=== PATIENT | female | born 1985 | race Hispanic/Latino ===

== ENCOUNTER 2017-03-27 12:19 | Emergency (ER) | payer MEDICAID ==
[2017-03-27 13:04] LABS: BASOPHILS % (AUTO) 1.1 % (0.0-5.0); EOSINOPHILS % (AUTO) 0.6 % (0.0-8.0); LYMPHOCYTES % (AUTO) 37.8 % (21.0-51.0); MEAN CORPUSCULAR HEMOGLOBIN 33.7 pg (27.0-33.0); MEAN CORPUSCULAR HGB CONC 34.6 g/dL (32.0-36.0); MEAN CORPUSCULAR VOLUME 97.6 fL (79-99); MONOCYTES % (AUTO) 10.5 % (3.0-13.0); PLATELET COUNT (AUTO) 216 K/uL (130-400); WHITE BLOOD COUNT (AUTO) 4.3 K/uL (4.8-10.8)
[2017-03-27 13:20] LABS: APPEARANCE,URINE Turbid (CLEAR); BILIRUBIN,URINE Moderate (NEGATIVE); COLOR,URINE Dark Yellow (YELLOW); GLUCOSE, URINE (UA) Negative (NEGATIVE); KETONES,URINE 15 mg/dL (NEGATIVE); LEUKOCYTE ESTERASE ,URINE Moderate (NEGATIVE); NITRATE,URINE Negative (NEGATIVE); OCCULT BLOOD,URINE Moderate (NEGATIVE); PH,URINE 5.5 (5.0-8.0); PROTEIN,URINE Trace (NEGATIVE)
[2017-03-27 13:22] LABS: HCG,QUAL RESULT NEGATIVE (NEGATIVE)
[2017-03-27 13:25] LABS: CREATININE 1.1 mg/dL (0.5-1.5); POTASSIUM 3.6 mmol/L (3.5-5.1)
[2017-03-27 13:29] LABS: AMPHET/METH SCREEN,URINE NEGATIVE (NEGATIVE); BARBITURATE SCREEN, URINE NEGATIVE (NEGATIVE); BENZODIAZEPINES SCREEN,URINE NEGATIVE (NEGATIVE); CANNABINOID SCREEN,URINE NEGATIVE (NEGATIVE); COCAINE SCREEN,URINE NEGATIVE (NEGATIVE); OPIATE SCREEN,URINE NEGATIVE (NEGATIVE); PHENCYCLIDINE SCREEN,URINE NEGATIVE (NEGATIVE)
[2017-03-27 13:37] LABS: ALBUMIN 3.2 g/dL (3.5-5.0); BILIRUBIN,TOTAL 0.9 mg/dL (0.2-1.0); THYROID STIMULATING HORMONE 0.05 uIU/mL (0.36-3.74); TOTAL PROTEIN, SERUM 7.2 g/dL (6.0-8.3)
[2017-03-27 13:49] LABS: BACTERIA,URINE Moderate /HPF (None Seen); MUCUS,URINE Many LPF (None Seen)
[2017-03-27] MEDS ORDERED: SODIUM CHLORIDE 0.9% 1000ML 1,000 ML IV ONE (13:57)
[2017-03-27] MEDS ORDERED: CEFTRIAXONE SODIUM 1 GM ONE (14:03)
== END 2017-03-27 14:58 | disposition home or self-care (01) ==
LOC: EDH 12:19
DX: N39.0 Urinary tract infection, site not specified (principal); E86.0 Dehydration; E07.9 Disorder of thyroid, unspecified; Z88.2 Allergy status to sulfonamides
CPT/HCPCS: 36415; 80053; 80305; 81001; 81025; 84443; 85025; 87088; 87186; 93005; 96361; 96374; 99285; J0696; J7030

== ENCOUNTER 2017-04-19 09:07 | Inpatient (IN) | payer MEDICAID ==
[~2017-04-19] VITALS: Ht 139.7 cm; Wt 57.6 kg
[2017-04-19 09:45] LABS: APPEARANCE,URINE Cloudy (CLEAR); BILIRUBIN,URINE Small (NEGATIVE); COLOR,URINE Dark Yellow (YELLOW); GLUCOSE, URINE (UA) Negative (NEGATIVE); KETONES,URINE >=160 mg/dL (NEGATIVE); LEUKOCYTE ESTERASE ,URINE Negative (NEGATIVE); NITRATE,URINE Negative (NEGATIVE); OCCULT BLOOD,URINE Moderate (NEGATIVE); PH,URINE 5.5 (5.0-8.0); PROTEIN,URINE POS 1+ (NEGATIVE)
[2017-04-19 09:59] LABS: BACTERIA,URINE Rare /HPF (None Seen); HYALINE CASTS, URINE 0-1 /LPF (0-1 /LPF); SQUAMOUS EPITHELIAL CELL,UR Few /LPF (0-2); WBC,URINE 0-1 /HPF (0-1)
[2017-04-19] MEDS ORDERED: SODIUM CHLORIDE 0.9% 1000ML 1,000 ML IV ONE ×3 (10:02→14:42)
[2017-04-19 10:23] LABS: BASOPHILS % (AUTO) 3.2 % (0.0-5.0); EOSINOPHILS % (AUTO) 0.6 % (0.0-8.0); HEMATOCRIT 43.5 % (36-48); LYMPHOCYTES % (AUTO) 36.5 % (21.0-51.0); MEAN CORPUSCULAR HEMOGLOBIN 34.3 pg (27.0-33.0); MEAN CORPUSCULAR HGB CONC 33.8 g/dL (32.0-36.0); MEAN CORPUSCULAR VOLUME 101.4 fL (79-99); MONOCYTES % (AUTO) 10.7 % (3.0-13.0); NUCLEATED RED BLOOD CELLS 0.1 % (0.0-0.19); PLATELET COUNT (AUTO) 181 K/uL (130-400); RED BLOOD CELL COUNT(AUTO) 4.29 MIL/uL (4.00-5.50); RED CELL DISTRIBUTION WIDTH 16.1 % (11.0-15.5); WHITE BLOOD COUNT (AUTO) 3.1 K/uL (4.8-10.8)
[2017-04-19 10:30] LABS: CREATININE 1.1 mg/dL (0.5-1.5); POTASSIUM 3.4 mmol/L (3.5-5.1)
[2017-04-19 10:54] LABS: ALBUMIN 3.2 g/dL (3.5-5.0); BILIRUBIN,DIRECT 0.6 mg/dL (0.0-0.3); BILIRUBIN,TOTAL 1.3 mg/dL (0.2-1.0); THYROID STIMULATING HORMONE 0.02 uIU/mL (0.36-3.74); TOTAL PROTEIN, SERUM 7.2 g/dL (6.0-8.3)
[2017-04-19] MEDS ORDERED: LEVO88TA4 PO (15:42)
[2017-04-19] MEDS ORDERED: ACETAMINOPHEN 325 MG TAB PO PRN (15:45)
[2017-04-19] MEDS ORDERED: ONDANSETRON HCL 4 MG/2 ML VIAL IVP PRN (15:45)
[2017-04-19 16:00] VITALS: BP 90/58
[2017-04-19] MEDS: SODIUM CHLORIDE 0.9% 1000ML 1,000 ML IV SCH ×2 (16:11→20:46)
[2017-04-19] MEDS ORDERED: POTASSIUM CHLORIDE 20 MEQ ERTAB PO PRN (16:30)
[2017-04-19] MEDS ORDERED: LIDOCAINE HCL-MPF 1% 2ML VIAL IVP PRN (16:30)
[2017-04-19] MEDS ORDERED: POTASSIUM CHLORIDE 10% ELIXIR 20 MEQ/15 ML UDCUP PO PRN (16:30)
[2017-04-19] MEDS ORDERED: POTASSIUM CHLORIDE 20MEQ/100ML 100 ML IV PRN (16:30)
[2017-04-19 19:59] VITALS: BP 91/57
[2017-04-20] VITALS (7 sets, daily range): BP systolic 86–100; BP diastolic 40–60
[2017-04-20] MEDS ORDERED: HYDRALAZINE HCL 20 MG/ML VIAL IV PRN (02:30)
[2017-04-20 05:54] LABS: BASOPHILS % (AUTO) 0.2 % (0.0-5.0); EOSINOPHILS % (AUTO) 0.7 % (0.0-8.0); HEMATOCRIT 34.2 % (36-48); LYMPHOCYTES % (AUTO) 52.2 % (21.0-51.0); MEAN CORPUSCULAR HEMOGLOBIN 35.6 pg (27.0-33.0); MEAN CORPUSCULAR HGB CONC 35.3 g/dL (32.0-36.0); MEAN CORPUSCULAR VOLUME 100.7 fL (79-99); NEUTROPHILS % (AUTO) 37.9 % (40.0-77.0); NUCLEATED RED BLOOD CELLS 0.1 % (0.0-0.19); PLATELET COUNT (AUTO) 155 K/uL (130-400); RED CELL DISTRIBUTION WIDTH 15.9 % (11.0-15.5); WHITE BLOOD COUNT (AUTO) 4.2 K/uL (4.8-10.8)
[2017-04-20 06:17] LABS: POTASSIUM 3.4 mmol/L (3.5-5.1); THYROID STIMULATING HORMONE 0.02 uIU/mL (0.36-3.74)
[2017-04-20] MEDS: FAMOTIDINE 20MG TAB 20 MG TAB PO SCH ×2 (09:15→21:00)
[2017-04-20] MEDS: SODIUM CHLORIDE 0.9% 1000ML 1,000 ML IV SCH ×2 (12:10→18:06)
[2017-04-21] MEDS: SODIUM CHLORIDE 0.9% 1000ML 1,000 ML IV SCH ×3 (00:56→22:35)
[2017-04-21 03:55] VITALS: BP 82/43
[2017-04-21] MEDS: LEVOTHYROXINE 50 MCG TABLET PO SCH (06:21)
[2017-04-21 07:00] VITALS: BP 91/57
[2017-04-21] MEDS: FAMOTIDINE 20MG TAB 20 MG TAB PO SCH ×2 (10:28→21:00)
[2017-04-21 11:00] VITALS: BP 124/58
[2017-04-21] MEDS ORDERED: POTASSIUM CHLORIDE 10% ELIXIR 20 MEQ/15 ML UDCUP PO PRN (11:45)
[2017-04-21] MEDS ORDERED: LIDOCAINE HCL-MPF 1% 2ML VIAL IVP PRN (11:45)
[2017-04-21] MEDS ORDERED: POTASSIUM CHLORIDE 20MEQ/100ML 100 ML IV PRN (11:45)
[2017-04-21] MEDS ORDERED: POTASSIUM CHLORIDE 20 MEQ ERTAB PO PRN (11:45)
[2017-04-21 16:00] VITALS: BP 87/51
[2017-04-21 20:36] VITALS: BP 90/66
[2017-04-22 00:26] VITALS: BP 87/55
[2017-04-22 04:09] VITALS: BP 100/51
[2017-04-22] MEDS: LEVOTHYROXINE 50 MCG TABLET PO SCH ×2 (06:27→06:43)
[2017-04-22] MEDS ORDERED: LEVO50TA4 PO (07:41)
[2017-04-22] MEDS ORDERED: POLY17PO4 PO (07:41)
[2017-04-22 08:00] VITALS: BP 91/59
[2017-04-22] MEDS: FAMOTIDINE 20MG TAB 20 MG TAB PO SCH (09:00)
== END 2017-04-22 10:40 | disposition home or self-care (01) | DRG 422 ==
LOC: EDH 09:07 → EDHIP 09:08 → OBSVTOIN 09:08 → EDHIP 12:27 → UNDOADMOB 12:27 → 4CH 14:04 → EDHIP 14:04 → 4BH 04-21 16:06
PROVIDERS: ADMIT Family Medicine; ATTEND Family Medicine
DX: E86.0 Dehydration (principal); E87.8 Other disorders of electrolyte and fluid balance, not elsewhere classified; R53.1 Weakness; E06.3 Autoimmune thyroiditis; E87.6 Hypokalemia; K59.00 Constipation, unspecified; Q90.9 Down syndrome, unspecified; Z88.2 Allergy status to sulfonamides
CPT/HCPCS: 36415; 71045; 74018; 76536; 80048; 80076; 81001; 81025; 82550; 82607; 82746; 83690; 84439; 84443; 84481; 85025; J3480; J3490; J7030

== ENCOUNTER 2017-06-09 12:45 | Inpatient (IN) | payer MEDICAID ==
[~2017-06-09] VITALS: Ht 139.7 cm; Wt 46.3 kg
[~2017-06-09 12:45] MED LIST: LEVO50TA4 PO; POLY17PO4 PO
[2017-06-09] MEDS ORDERED: SODIUM CHLORIDE 0.9% 1000ML 1,000 ML IV ONE ×2 (13:43→18:44)
[2017-06-09 13:54] LABS: CREATININE 1.3 mg/dL (0.5-1.5); POTASSIUM 3.3 mmol/L (3.5-5.1)
[2017-06-09 13:57] LABS: NUCLEATED RED BLOOD CELLS 0.2 % (0.0-0.19); RED BLOOD CELL COUNT(AUTO) 3.73 MIL/uL (4.00-5.50); WHITE BLOOD COUNT (AUTO) 3.4 K/uL (4.8-10.8)
[2017-06-09 14:00] LABS: BILIRUBIN,TOTAL 1.1 mg/dL (0.2-1.0)
[2017-06-09 14:07] LABS: BASOPHILS % (AUTO) 3.1 % (0.0-5.0); EOSINOPHILS % (AUTO) 0.5 % (0.0-8.0); HEMATOCRIT 38.6 % (36-48); LYMPHOCYTES % (AUTO) 41.7 % (21.0-51.0); MEAN CORPUSCULAR HGB CONC 34.8 g/dL (32.0-36.0); MEAN CORPUSCULAR VOLUME 103.4 fL (79-99); MONOCYTES % (AUTO) 9.4 % (3.0-13.0); NEUTROPHILS % (AUTO) 45.3 % (40.0-77.0); PLATELET COUNT (AUTO) 231 K/uL (130-400); RED CELL DISTRIBUTION WIDTH 14.6 % (11.0-15.5)
[2017-06-09] MEDS ORDERED: DEXTROSE 50%-WATER 50 ML DISP.SYRIN IV ONE (14:35)
[2017-06-09 14:39] LABS: APPEARANCE,URINE Cloudy (CLEAR); BILIRUBIN,URINE Moderate (NEGATIVE); COLOR,URINE Dark Yellow (YELLOW); GLUCOSE, URINE (UA) Negative (NEGATIVE); KETONES,URINE >=160 mg/dL (NEGATIVE); LEUKOCYTE ESTERASE ,URINE Small (NEGATIVE); NITRATE,URINE Negative (NEGATIVE); OCCULT BLOOD,URINE Negative (NEGATIVE); PH,URINE 5.5 (5.0-8.0); PROTEIN,URINE POS 1+ (NEGATIVE)
[2017-06-09 14:48] LABS: BACTERIA,URINE Rare /HPF (None Seen); MUCUS,URINE Many LPF (None Seen); RBC,URINE None Seen /HPF (0-1); WBC,URINE 0-1 /HPF (0-1)
[2017-06-09] MEDS ORDERED: LEVOFLOXACIN 500 MG/D5W 100 ML 100 ML ONE (18:44)
[2017-06-09] MEDS ORDERED: POTASSIUM CHLORIDE 20 MEQ ERTAB PO PRN (19:15)
[2017-06-09] MEDS ORDERED: ACETAMINOPHEN 325 MG TAB PO PRN (19:15)
[2017-06-09] MEDS ORDERED: ONDANSETRON HCL MDV 20ML 2 MG/ML VIAL IVP PRN (19:15)
[2017-06-09] MEDS ORDERED: LEVOFLOXACIN 500 MG/D5W 100 ML 100 ML IV SCH (19:15)
[2017-06-09] MEDS ORDERED: POTASSIUM CHLORIDE 10% ELIXIR 20 MEQ/15 ML UDCUP PO PRN (19:15)
[2017-06-09] MEDS: POLYETHYLENE GLYCOL 3350 17 GM POWD.PACK PO SCH (19:15)
[2017-06-09] MEDS ORDERED: LACTULOSE 20 GM/30 ML UDCUP ONE (19:37)
[2017-06-09 23:10] VITALS: BP 96/54
[2017-06-10] VITALS: BP 87/60
[2017-06-10] MEDS ORDERED: LACTULOSE 20 GM/30 ML UDCUP ONE (00:10)
[2017-06-10 04:00] VITALS: BP 86/54
[2017-06-10] MEDS ORDERED: CEFTRIAXONE 1GM/D5W 50ML 50 ML IV SCH (05:45)
[2017-06-10 07:30] VITALS: BP 81/58
[2017-06-10 07:48] LABS: BASOPHILS % (AUTO) 2.1 % (0.0-5.0); EOSINOPHILS % (AUTO) 0.9 % (0.0-8.0); HEMATOCRIT 34.6 % (36-48); LYMPHOCYTES % (AUTO) 51.2 % (21.0-51.0); MEAN CORPUSCULAR HEMOGLOBIN 35.9 pg (27.0-33.0); MEAN CORPUSCULAR HGB CONC 34.6 g/dL (32.0-36.0); MEAN CORPUSCULAR VOLUME 103.8 fL (79-99); MONOCYTES % (AUTO) 11.5 % (3.0-13.0); NEUTROPHILS % (AUTO) 34.3 % (40.0-77.0); NUCLEATED RED BLOOD CELLS 0.1 % (0.0-0.19); PLATELET COUNT (AUTO) 193 K/uL (130-400); RED BLOOD CELL COUNT(AUTO) 3.33 MIL/uL (4.00-5.50); RED CELL DISTRIBUTION WIDTH 14.3 % (11.0-15.5); WHITE BLOOD COUNT (AUTO) 3.7 K/uL (4.8-10.8)
[2017-06-10 07:55] LABS: CREATININE 1.2 mg/dL (0.5-1.5); POTASSIUM 3.2 mmol/L (3.5-5.1)
[2017-06-10] MEDS: POLYETHYLENE GLYCOL 3350 17 GM POWD.PACK PO SCH ×2 (10:13→19:15)
[2017-06-10] MEDS: CEFTRIAXONE SODIUM 1 GM IVP SCH (10:13)
[2017-06-10] MEDS: POTASSIUM CHLORIDE 20MEQ/100ML 100 ML IV PRN ×2 (10:21→14:27)
[2017-06-10] MEDS: LIDOCAINE HCL-MPF 1% 2ML VIAL IVP PRN ×2 (10:21→14:27)
[2017-06-10 11:00] VITALS: BP 89/55
[2017-06-10 11:08] LABS: MAGNESIUM 1.8 mg/dL (1.80-2.40); THYROID STIMULATING HORMONE 0.7 uIU/mL (0.36-3.74)
[2017-06-10] MEDS ORDERED: BENZOCAINE/MENTH/CETYLPYRD CL 1 EACH LOZENGE MM PRN (15:45)
[2017-06-10] MEDS: BISACODYL 10 MG SUPP.RECT RC ONE ×2 (15:45→17:33)
[2017-06-10 16:00] VITALS: BP 84/54
[2017-06-10] MEDS: MEGESTROL 400 MG/10 ML UDCUP PO SCH ×2 (17:33→20:39)
[2017-06-10 20:00] VITALS: BP 86/54
[2017-06-11] VITALS: BP 83/52
[2017-06-11 04:00] VITALS: BP 82/50
[2017-06-11] MEDS: LEVOTHYROXINE 50 MCG TABLET PO SCH (06:01)
[2017-06-11 06:05] LABS: HEMATOCRIT 29.4 % (36-48); MEAN CORPUSCULAR HGB CONC 36.7 g/dL (32.0-36.0); MEAN CORPUSCULAR VOLUME 103.6 fL (79-99); NUCLEATED RED BLOOD CELLS 0.1 % (0.0-0.19); PLATELET COUNT (AUTO) 165 K/uL (130-400); RED BLOOD CELL COUNT(AUTO) 2.84 MIL/uL (4.00-5.50); RED CELL DISTRIBUTION WIDTH 14.4 % (11.0-15.5); WHITE BLOOD COUNT (AUTO) 3.6 K/uL (4.8-10.8)
[2017-06-11 06:13] LABS: CREATININE 1.1 mg/dL (0.5-1.5); POTASSIUM 3.1 mmol/L (3.5-5.1)
[2017-06-11] MEDS: LIDOCAINE HCL-MPF 1% 2ML VIAL IVP PRN ×2 (06:32→11:05)
[2017-06-11] MEDS: POTASSIUM CHLORIDE 20MEQ/100ML 100 ML IV PRN ×2 (06:32→11:04)
[2017-06-11] MEDS: SODIUM CHLORIDE 0.9% 1000ML 1,000 ML IV SCH ×2 (06:49→17:19)
[2017-06-11 07:57] VITALS: BP 86/52
[2017-06-11] MEDS: CEFTRIAXONE SODIUM 1 GM IVP SCH (08:28)
[2017-06-11] MEDS: POLYETHYLENE GLYCOL 3350 17 GM POWD.PACK PO SCH ×2 (08:28→19:15)
[2017-06-11] MEDS: MEGESTROL 400 MG/10 ML UDCUP PO SCH ×4 (08:28→20:54)
[2017-06-11 11:30] VITALS: BP 85/52
[2017-06-11 19:05] VITALS: BP 98/60
[2017-06-12 00:15] VITALS: BP 108/68
[2017-06-12] MEDS: SODIUM CHLORIDE 0.9% 1000ML 1,000 ML IV SCH ×2 (03:02→11:50)
[2017-06-12] MEDS: BISACODYL 10 MG SUPP.RECT RC PRN ×2 (03:04→08:49)
[2017-06-12 04:05] VITALS: BP 95/60
[2017-06-12 05:09] LABS: HEMATOCRIT 33.4 % (36-48); MEAN CORPUSCULAR HGB CONC 34.7 g/dL (32.0-36.0); MEAN CORPUSCULAR VOLUME 103.9 fL (79-99); PLATELET COUNT (AUTO) 151 K/uL (130-400); RED BLOOD CELL COUNT(AUTO) 3.22 MIL/uL (4.00-5.50); RED CELL DISTRIBUTION WIDTH 14.2 % (11.0-15.5); WHITE BLOOD COUNT (AUTO) 5.2 K/uL (4.8-10.8)
[2017-06-12 05:20] LABS: MAGNESIUM 1.4 mg/dL (1.80-2.40); POTASSIUM 3.5 mmol/L (3.5-5.1)
[2017-06-12] MEDS: LEVOTHYROXINE 50 MCG TABLET PO SCH (06:26)
[2017-06-12] MEDS: LIDOCAINE HCL-MPF 1% 2ML VIAL IVP PRN (06:26)
[2017-06-12] MEDS: POTASSIUM CHLORIDE 20MEQ/100ML 100 ML IV PRN (06:26)
[2017-06-12 08:31] VITALS: BP 89/55
[2017-06-12] MEDS: MEGESTROL 400 MG/10 ML UDCUP PO SCH ×2 (08:35→12:33)
[2017-06-12] MEDS: CEFTRIAXONE SODIUM 1 GM IVP SCH (08:35)
[2017-06-12] MEDS: POLYETHYLENE GLYCOL 3350 17 GM POWD.PACK PO SCH (08:36)
[2017-06-12 11:59] VITALS: BP 86/57
[2017-06-12] MEDS ORDERED: DOCU-132 PO (12:25)
[2017-06-12] MEDS ORDERED: CEPH-578 PO (12:25)
[2017-06-12] MEDS ORDERED: MEGE400O4 PO (12:25)
[2017-06-12] MEDS ORDERED: MAGNESIUM 2GM PREMIX 50ML 50 ML IV SCH (12:30)
== END 2017-06-12 17:05 | disposition home or self-care (01) | DRG 115 ==
LOC: EDH 12:45 → EDHIP 12:46 → 4AH 22:45 → 3AH 06-11 15:50
PROVIDERS: ADMIT Family Medicine; ATTEND Family Medicine
DX: S09.90XA Unspecified injury of head, initial encounter (principal); E44.1 Mild protein-calorie malnutrition; K76.0 Fatty (change of) liver, not elsewhere classified; N39.0 Urinary tract infection, site not specified; E03.9 Hypothyroidism, unspecified; E05.90 Thyrotoxicosis, unspecified without thyrotoxic crisis or storm; E86.0 Dehydration; E87.6 Hypokalemia; N20.0 Calculus of kidney; K59.00 Constipation, unspecified; E83.42 Hypomagnesemia; X58.XXXA Exposure to other specified factors, initial encounter; Y93.89 Activity, other specified; Y92.89 Other specified places as the place of occurrence of the external cause; Y99.8 Other external cause status; Q90.9 Down syndrome, unspecified; Z68.23 Body mass index [BMI] 23.0-23.9, adult; Z88.2 Allergy status to sulfonamides; Z53.20 Procedure and treatment not carried out because of patient's decision for unspecified reasons
CPT/HCPCS: 36415; 70450; 74021; 74176; 80048; 80053; 81001; 83735; 84132; 84439; 84443; 84481; 84703; 85025; 85027; 87880; 93005; 93306; A4218; J0696; J1956; J3475; J3480; J3490; J7030; J7070

== ENCOUNTER 2018-08-17 07:28 | Inpatient (IN) | payer MEDICAID | END 2018-08-23 18:57 | disposition home or self-care (01) | LOC: EDH 07:28 → EDHIP 07:29 → 3BH 11:51 | DX: A41.9 Sepsis, unspecified organism (principal); D53.1 Other megaloblastic anemias, not elsewhere classified; I10 Essential (primary) hypertension; Q90.9 Down syndrome, unspecified; R00.0 Tachycardia, unspecified; K29.70 Gastritis, unspecified, without bleeding; R62.7 Adult failure to thrive; H70.91 Unspecified mastoiditis, right ear; R13.10 Dysphagia, unspecified ==

== ENCOUNTER 2020-05-30 20:35 | Emergency (ER) | payer MEDICAID ==
[~2020-05-30 20:35] MED LIST changes: +CITA20SO2 PO; +MEGE625O5 PO; -POLY17PO4 PO
[2020-05-30 20:56] LABS: BASOPHILS % (AUTO) 1.2 % (0.0-5.0); EOSINOPHILS % (AUTO) 1.2 % (0.0-8.0); HEMATOCRIT 41.1 % (36-48); MEAN CORPUSCULAR HEMOGLOBIN 34.8 pg (27.0-33.0); MEAN CORPUSCULAR HGB CONC 33.6 g/dL (32.0-36.0); MEAN CORPUSCULAR VOLUME 103.8 fL (79-99); MONOCYTES % (AUTO) 8.2 % (3.0-13.0); NEUTROPHILS % (AUTO) 44.2 % (40.0-77.0); PLATELET COUNT (AUTO) 210 K/uL (130-400); RED BLOOD CELL COUNT(AUTO) 3.96 MIL/uL (4.00-5.50); RED CELL DISTRIBUTION WIDTH 12.9 % (11.0-15.5)
[2020-05-30 21:09] LABS: CREATININE 0.9 mg/dL (0.5-1.5)
[2020-05-30 21:24] LABS: ALBUMIN 2.9 g/dL (3.5-5.0); BILIRUBIN,TOTAL 0.7 mg/dL (0.2-1.0); TOTAL PROTEIN, SERUM 6.6 g/dL (6.0-8.3)
[2020-05-30 21:39] LABS: APPEARANCE,URINE Clear (CLEAR); BILIRUBIN,URINE Negative (NEGATIVE); COLOR,URINE Yellow (YELLOW); GLUCOSE, URINE (UA) Negative (NEGATIVE); KETONES,URINE Negative (NEGATIVE); LEUKOCYTE ESTERASE ,URINE Negative (NEGATIVE); NITRATE,URINE Negative (NEGATIVE); OCCULT BLOOD,URINE Negative (NEGATIVE); PH,URINE 7.5 (5.0-8.0); PROTEIN,URINE Negative (NEGATIVE); UROBILINOGEN,URINE 0.2 mg/dL (0.2-1.0)
== END 2020-05-30 23:14 | disposition home or self-care (01) ==
LOC: EDH 20:35
DX: R09.89 Other specified symptoms and signs involving the circulatory and respiratory systems (principal); R06.02 Shortness of breath; R07.89 Other chest pain; R11.10 Vomiting, unspecified; Q90.9 Down syndrome, unspecified; E07.9 Disorder of thyroid, unspecified; Z88.2 Allergy status to sulfonamides
CPT/HCPCS: 36415; 71046; 80053; 81003; 82550; 83605; 83690; 84443; 84484; 85025; 93005

== ENCOUNTER 2024-01-24 14:36 | Emergency (ER) | payer MEDICAID ==
[~2024-01-24] VITALS: Ht 139.7 cm; Wt 54.0 kg
[2024-01-24 15:12] VITALS: TEMP 98.9
--- NOTE | 2024-01-24 16:07 | HMCIMG ---
CHEST 1VW HISTORY: Shortness of breath COMPARISON: 05/30/2020 FINDINGS: A frontal projection of the chest was obtained. Prominent interstitial markings are seen with possible superimposed infiltrates. The heart is normal in size. Mild degenerative changes are seen. No evidence of aortic calcification is seen. IMPRESSION: 1. Prominent interstitial markings are seen with possible superimposed infiltrates.
[2024-01-24] MEDS ORDERED: METH4TAB3 PO (16:58)
[2024-01-24] MEDS ORDERED: AZIT250T9 PO (16:58)
--- NOTE | 2024-01-24 16:59 | ERN ---
General Chief Complaint: Hypotension Stated Complaint: LOW BLOOD PRESSURE, INFLUENZA A, DEHYDRATION Time Seen by MD: 14:41 Time Seen by Midlevel: 14:41 Source: patient History of Present Illness Initial Comments Patient is a 38-year-old female with a past medical history of Down syndrome being brought in by mom for evaluation of cough congestion that has been ongoing for the last couple of days. Patient was recently diagnosed with influenza a and was started on medication. However mom noted no improvement and an increasing coughing so she decided to bring her in for further evaluation. No fevers reported at home. Allergies: Coded Allergies: Sulfa (Sulfonamide Antibiotics) (Verified Allergy, Unknown, 04/19/17) Home Meds Active Scripts Methylprednisolone (Medrol) 4 Mg Tab.ds.pk, 1 TAB PO AD for 6 Days, #21 TAB 0 Refills 6 on day 1 then reduce by one tablet daily until gone Prov:ZAIDA SALINAS 01/24/24 Azithromycin (Azithromycin) 250 Mg Tablet, 1 TAB PO AD for 5 Days, #6 TAB 0 Refills 2 the first day followed by 1 for days 2-5 Prov:ZAIDA SALINAS 01/24/24 Levothyroxine Sodium (Synthroid 50 Mcg Tab) 50 Mcg Tablet, 50 MCG PO DAILY@063 0, #30 TAB Prov:ZAIDA HILL MD 04/22/17 Reported Medications Megestrol Acetate (Megestrol Acetate) 625 Mg/5 Ml Oral.susp, 625 MG PO ACBKFST, ML 08/18/18 Citalopram Hydrobromide (Citalopram HBr) 20 Mg/10 Ml Solution, 20 MG PO ACLUNCH, ML 08/18/18 Past Medical History Past Medical History: Hyperthyroid, Other Medical History Other: DOWN SYNDROME, URI Past Surgical History: None ROS Dictation CONSTITUTIONAL: Negative except for HPI HEAD/FACE: Negative except for HPI EENT: Negative except for HPI RESPIRATORY: Negative except for HPI GASTROINTESTINAL/ABDOMINAL: Negative except for HPI GENITOURINARY: Negative except for HPI MUSCULOSKELETAL: Negative except for HPI INTEGUMENTARY: Negative except for HPI NEUROLOGICAL/PSYCH: Negative except for HPI HEMATOLOGIC/LYMPHATIC: Negative except for HPI All Systems Negative, Except as noted above. 13 point review of systems assessed and all negative except for above. Physical Exam Physical Exam Dictation Vital Signs reviewed General Appearance: Alert, oriented x 3, no acute distress, well developed, nourished. Head and Face: non-traumatic. Eyes: PERRL, pink conjunctivas, eyelid no trauma, anterior chamber with arcus senilis. Ears: Pinnas intact and no signs of trauma or erythema ear canals clear and no discharge TM no erythema Nose: No discharge, no bleeding. Oropharynx: Mouth normal, tongue pink, pharynx clear,no erythema, tonsils no exudates, no abscesses noted, mucous membrane moist Neck: Supple, non-tender, no thyromegaly, no masses, no JVD, no bruits Breast:Deferred Chest:No tenderness, no crepitus, no paradoxical movement, no retractions Lungs:Clear, well-ventilated, symmetric, no rales, no wheezing, no rhonchi, no stridor, good breath sounds bilaterally Heart: Regular rate, regular rhythm, no murmur, no gallops Vascular: no peripheral edema, Abdomen: Soft, positive bowel sounds, nondistended, no guarding, nontender, no rebound, no masses no hepatomegaly, no splenomegaly, no Uriarte's sign, no hernias. Rectal: Deferred Genital: Deferred Neurological: Normal speech, motor function intact, sensory function intact Musculoskeletal: Neck nontender, full range of motion, back nontender, full range of motion, Extremities: nontender, full range of motion Skin: Color pink, dry, no turgor, no rash, no lacerations, no abrasions, no contusions. Lymphatic: Deferred MDM MDM: Differential diagnosis: Pneumonia, pneumonitis, bronchitis, viral syndrome There are no social concerns with this patient. Prescription drug management Prescriptions will include: Azithromycin, Medrol pack Medical management and examination interpretation discussions were had by me with other qualified healthcare professionals as indicated for the patient's care. ED Course Orders Procedure Category Date Status Time Chest 1vw RAD 01/24/24 Resulted 15:18 Ceftriaxone 1g Vial PHA 01/24/24 Complete (Rocephine 1g Inj) 16:30 Dexamethasone 4mg/Ml PHA 01/24/24 Complete 1ml Vial (Dexametha 16:30 0.9%Nacl 1000ml (Ns PHA 01/24/24 Complete 1000ml) 16:30 Current Medications Medications (Trade) Dose Ordered Sig/Juventino Route PRN Reason Start Time Stop Time Status Last Admin Dose Admin Ceftriaxone Sodium (ROCEphine 1G INJ) 1 gm ONCE ONCE IVPB 01/24/24 16:30 01/24/24 16:31 DC 01/24/24 17:12 Dexamethasone Sodium Phosphate (dexaMETHasone 4MG/ML 1ML VIAL) 4 mg ONCE ONCE IV 01/24/24 16:30 01/24/24 16:31 DC 01/24/24 17:12 Sodium Chloride 1,000 ml @ 0 mls/hr ONCE ONCE IV 01/24/24 16:30 01/24/24 16:31 DC 01/24/24 17:13 Vital Signs Date Time Temp Pulse Resp B/P (MAP) Pulse Ox O2 Delivery O2 Flow Rate FiO2 01/24/24 18:02 75 16 101/62 98 Room Air* 0 01/24/24 15:39 78 15 90/62 99 Room Air* 0 01/24/24 15:12 99.0 66 18 100/67 97 DX & DISP Disposition: Discharge Departure Impression: Primary Impression: Community acquired pneumonia Condition: Stable Scripts Methylprednisolone (Medrol) 4 Mg Tab.ds.pk 1 TAB PO AD for 6 Days, #21 TAB 0 Refills 6 on day 1 then reduce by one tablet daily until gone Prov: ZAIDA SALINAS 01/24/24 Azithromycin (Azithromycin) 250 Mg Tablet 1 TAB PO AD for 5 Days, #6 TAB 0 Refills 2 the first day followed by 1 for days 2-5 Prov: ZAIDA SALIANS 01/24/24 Additional Instructions: Your chest x-ray is consistent with pneumonia. You were given IV antibiotics and fluids in the emergency department. I have given you a prescription for outpatient antibiotics and steroids. Follow up with your primary care doctor in 2-3 days for repeat evaluation. Return to the ER for any new or worsening symptoms Referrals: EDWIN JOHNSON MD (PCP) Time of Disposition: 16:57 I have reviewed the case, and I agree with, Diagnosis and Plan I performed the substantive portion of the visit. I have reviewed and personally made and approve the management plan that is documented in the note by myself or the MELODIE. I acknowledge for responsibility for the patient's management plan. ZAIDA SALINAS Jan 24, 2024 16:59
[2024-01-24] MEDS: cefTRIAXone 1G VIAL IVPB ONE (17:12)
[2024-01-24] MEDS: dexaMETHasone SOD PHOSPHATE 4 MG/ML 1ML VIAL IV ONE (17:12)
[2024-01-24] MEDS: 0.9%NACL 1000ML 1,000 ML IV ONE (17:13)
[2024-01-24 18:02] VITALS: BP 101/62; PULSE 75; RESP 16; O2SAT 98
== END 2024-01-24 18:03 | disposition home or self-care (01) ==
LOC: EDH 14:36
DX: J10.00 Influenza due to other identified influenza virus with unspecified type of pneumonia (principal); E86.0 Dehydration; Q90.9 Down syndrome, unspecified; Z79.890 Hormone replacement therapy; Z88.2 Allergy status to sulfonamides
CPT/HCPCS: 99284; 96374; 71045; 96361; 96375; J1100; J7030; J0696

== ENCOUNTER 2025-02-08 03:02 | Emergency (ER) | payer MEDICAID ==
[~2025-02-08] VITALS: Ht 139.7 cm; Wt 52.2 kg
[2025-02-08] MEDS: 0.9%NACL 1000ML 1,000 ML IV SCH (03:37)
[2025-02-08 04:12] LABS: COVID19 (SARS ANTIGEN RAPID) PRESUMPTIVE NEGATIVE (NEGATIVE); INFLUENZA TYPE A Negative For Type A (NEGATIVE); INFLUENZA TYPE B Negative For Type B (NEGATIVE)
--- NOTE | 2025-02-08 04:26 | ERN ---
General Chief Complaint: Allergic Reaction Stated Complaint: MULTIPLE C/O AFTER TAKING NEW MEDICATION Time Seen by MD: 03:17 History of Present Illness Initial Comments 39-year-old female history of down syndrome brought in by mom for evaluation of possible allergic reaction. As per mom patient was recently started on p.o. citalopram liquid and afterwards threw up and was complaining of visual shaw ucinations. Mom was concerned and brought the patient to the emergency room for evaluation. Allergies: Coded Allergies: Sulfa (Sulfonamide Antibiotics) (Verified Allergy, Unknown, 04/19/17) Home Meds Active Scripts Methylprednisolone (Medrol) 4 Mg Tab.ds.pk, 1 TAB PO AD for 6 Days, #21 TAB 0 Refills 6 on day 1 then reduce by one tablet daily until gone Prov:ZAIDA SALINAS 01/24/24 Azithromycin (Azithromycin) 250 Mg Tablet, 1 TAB PO AD for 5 Days, #6 TAB 0 Refills 2 the first day followed by 1 for days 2-5 Prov:ZAIDA SALINAS 01/24/24 Levothyroxine Sodium (Synthroid 50 Mcg Tab) 50 Mcg Tablet, 50 MCG PO DAILY@0630, #30 TAB Prov:ZAIDA HILL MD 04/22/17 Reported Medications Megestrol Acetate (Megestrol Acetate) 625 Mg/5 Ml Oral.susp, 625 MG PO ACBKFST, ML 08/18/18 Citalopram Hydrobromide (Citalopram HBr) 20 Mg/10 Ml Solution, 20 MG PO ACLUNCH, ML 08/18/18 Past Medical History Past Medical History: Hyperthyroid, Hypothyroid, Other Medical History Other: DOWN SYNDROME, DEBRA'S Past Surgical History: None Gastrointestinal/Abdominal: (+) vomiting Review of Systems: was completed, & the rest were negative. Physical Exam Physical Exam Dictation Patient alert awake, no acute distress. Trisomy face he has Pupils equal round reactive to light, extraocular movements intact Throat clear. O/P clear moist mucous membranes. Regular rate and rhythm no murmur. Clear to auscultation bilaterally Abdomen is soft nontender nondistended Neuro: Alert, follows commands. Skin: No rash Results Laboratory and Microbiology Lab and Micro Result Laboratory Tests Test 02/08/25 03:22 Influenza Type A Antigen Negative For Type A Influenza Type B Antigen Negative For Type B SARS-CoV-2 Antigen (Rapid) PRESUMPTIVE NEGATIVE MDM 39-year-old female history of Down's syndrome here for evaluation of possible allergic reaction to escitalopram p.o. liquid. I do not believe she actually has a true allergic reaction however I treated her as an allergic reaction with IV steroids, fluids, Benadryl. I will discharge her home with a Medrol Dosepak, Zyrtec p.o.. 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 I believe that the patient has been having visual/auditory hallucinations that are very calming with her condition. I advised the patient's mom to follow up with the primary care doctor to determine the cause of this as an allergy to escitalopram is low on my differential. Patient mom was advised for concerning signs and symptoms for which to return to the emergency room. We will have patient follow up with the PCP. All questions answered at this time. Discharge home ED Course Orders Procedure Category Date Status Time Influenza Type A & B, LAB 02/08/25 Complete Rapid 03:17 Covid19 (Sars Antigen LAB 02/08/25 Complete Rapid) 03:17 Diphenhydramine Hcl PHA 02/08/25 Complete (Benadryl Inj) 03:30 Methylprednisolone PHA 02/08/25 Complete Succ 125mg (Solu-Medr 03:30 0.9%Nacl 1000ml (Ns PHA 02/08/25 Complete 1000ml) 03:30 Current Medications Medications (Trade) Dose Ordered Sig/Juventino Route PRN Reason Start Time Stop Time Status Last Admin Dose Admin Diphenhydramine HCl (BENAdryl INJ) 25 mg ONCE ONCE IV 02/08/25 03:30 02/08/25 03:33 DC 02/08/25 03:37 Methylprednisolone Sodium Succinate (Solu-medROL 125MG) 80 mg ONCE ONCE IVP 02/08/25 03:30 02/08/25 03:32 DC 02/08/25 03:36 Sodium Chloride 1,000 ml @ 0 mls/hr Q0M IV 02/08/25 03:30 02/08/25 04:01 DC 02/08/25 03:37 Vital Signs Date Time Temp Pulse Resp B/P (MAP) Pulse Ox O2 Delivery O2 Flow Rate FiO2 02/08/25 03:04 98.2 92 14 105/63 100 Room Air 0 DX & DISP Disposition: Discharge Departure Impression: Primary Impression: Allergy to drug 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
[2025-02-08 04:41] VITALS: BP 108/65; PULSE 86; RESP 17; TEMP 98.4; O2SAT 97
== END 2025-02-08 04:42 | disposition home or self-care (01) ==
LOC: EDH 03:02
DX: R44.1 Visual hallucinations (principal); T43.225A Adverse effect of selective serotonin reuptake inhibitors, initial encounter; Y92.89 Other specified places as the place of occurrence of the external cause; F02.82 Dementia in other diseases classified elsewhere, unspecified severity, with psychotic disturbance; Q90.9 Down syndrome, unspecified; E03.9 Hypothyroidism, unspecified; Z20.822 Contact with and (suspected) exposure to COVID-19; Z79.890 Hormone replacement therapy; Z88.2 Allergy status to sulfonamides
CPT/HCPCS: 99284; 96374; 96375; 87426; 87804 ×2; J2919; J1200; J7030